=== PATIENT | female | born 1970 ===

== ENCOUNTER 2017-07-06 15:51 | Emergency (ER) | payer BC ==
[2017-07-06 16:07] VITALS: BP 128/97; PULSE 107; RESP 16; TEMP 98.2; O2SAT 100
--- NOTE | 2017-07-06 16:15 | ED PDOC ---
HPI: General Adult Time Seen by Provider: 07/06/17 16:14 Chief Complaint (Nursing): Anxiety Chief Complaint (Provider): SOB, anxiety History Per: Patient Additional Complaint(s): 46-year-old female presents to emergency Department with chest congestion and cough. Patient has history of asthma and states she is currently taking steroids for asthma exacerbation. Patient was at work today when she noticed a clicking sensation and cramping pain in her right thumb that may have been caused by injury to thumb while taking out the garbage earlier this morning. The thumb pain made patient extremely anxious which caused her shortness of breath to worsen. Patient has history of anxiety and she took a Klonopin dose at that time which seemed to help. Upon arrival patient's feels anxious and slightly short of breath but she denies suicidal or homicidal ideation. PMD: Dr. Mcnamara Past Medical History Reviewed: Historical Data, Nursing Documentation, Vital Signs Vital Signs: Last Vital Signs Temp 98.2 F 07/06/17 16:03 Pulse 107 H 07/06/17 16:03 Resp 16 07/06/17 16:03 BP 128/97 H 07/06/17 16:03 Pulse Ox 100 07/06/17 16:15 - Medical History PMH: Anxiety, Asthma - Family History Family History: States: No Known Family Hx - Living Arrangements Living Arrangements: With Family - Social History Current smoker - smoking cessation education provided: No Alcohol: None Drugs: Denies - Allergies Allergies/Adverse Reactions: Allergies Allergy/AdvReac Type Severity Reaction Status Date / Time No Known Allergies Allergy Verified 07/06/17 16:03 Review of Systems ROS Statement: Except As Marked, All Systems Reviewed And Found Negative Constitutional: Negative for: Fever Cardiovascular: Positive for: Chest Pain ("tightness") Respiratory: Positive for: Cough, Shortness of Breath Gastrointestinal: Negative for: Nausea, Vomiting Psych: Positive for: Anxiety. Negative for: Suicidal ideation Physical Exam - Reviewed Nursing Documentation Reviewed: Yes Vital Signs Reviewed: Yes - Physical Exam Appears: Positive for: Well, Non-toxic, No Acute Distress Skin: Negative for: Rash Eye Exam: Positive for: Normal appearance Cardiovascular/Chest: Positive for: Regular Rate, Rhythm Respiratory: Positive for: Decreased Breath Sounds. Negative for: Respiratory Distress Gastrointestinal/Abdominal: Positive for: Soft. 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 Negative for: Motor/Sensory Deficits, Aphasia, Facial Droop - Laboratory Results Result Diagrams: 07/06/17 17:55 07/06/17 17:55 Urine POC: Negative - ECG Interpretation Of ECG: Sinus tach 111, no acute finding, reviewed by PA and ED attending O2 Sat by Pulse Oximetry: 100 Pulse Ox Interpretation: Normal - Other Rad CXR X-Ray: Interpreted by Me, Viewed By Me X-Ray Interpretation: no acute finding Nebulizer Treatments/Peak Flow - Duonebs Number of Bronchodilator Doses given?: 1 (duoneb) - Steroid Treatment Steroid: IV (solmedrol) - Clinical Response Clinical Response: Improved Medical Decision Making Medical Decision Makin-year-old with asthma exacerbation and anxiety. 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 West, patient does not meet criteria for admission and is stable for discharge. Patient feels better after DuoNeb treatment and medications administered. She was advised to continue current prednisone course and follow up tomorrow with primary doctor. Disposition - Clinical Impression Clinical Impression: Anxiety, Asthma Counseled Patient/Family Regarding: Studies Performed, Diagnosis, Need For Followup, Rx Given - Disposition Referrals: [facility] [Outside] Disposition Time: 19:15 Condition: STABLE Additional Instructions: Continue with current medications. Follow up tomorrow with primary doctor. Instructions: Anxiety (ED), Asthma (ED) Forms: [employer] ([place]ian) Results - Lab Results Lab Results: 07/06/17 07/06/17 17:55 17:55 WBC 8.9 RBC 3.72 L Hgb 11.8 L Hct 34.1 MCV 91.5 MCH 31.6 H MCHC 34.5 RDW 14.1 Plt Count 211 MPV 8.6 Neut % (Auto) 86.7 H Lymph % (Auto) 9.2 L [place] % (Auto) 3.9 Eos % (Auto) 0.0 Baso % (Auto) 0.2 Neut # 7.7 H Lymph # 0.8 L [place] # 0.4 Eos # 0.0 Baso # 0.0 Neutrophils % (Manual) Pending Lymphocytes % (Manual) Pending Monocytes % (Manual) Pending Platelet Estimate Pending Sodium 141 Potassium 4.2 Chloride 102 Carbon Dioxide 27 Anion Gap 16 BUN 13 Creatinine 0.7 Est GFR ( Amer) > 60 Est GFR (Non-Af Amer) > 60 Random Glucose 100 Calcium 9.6 Total Bilirubin 0.5 AST 24 ALT 28 Alkaline Phosphatase 50 Troponin I < 0.0120 Total Protein 7.8 Albumin 4.4 Globulin 3.4 Albumin/Globulin Ratio 1.3
[2017-07-06] MEDS ORDERED: Albuterol-Ipratrop 3 mg / 0.5 (3 ml) UD INH STA (17:04)
[2017-07-06] MEDS ORDERED: Albuterol-Ipratrop 3 mg / 0.5 (3 ml) UD ONE (17:28)
[2017-07-06 18:15] LABS: BASO % 0.2 % (0.0-2.0); HEMOGLOBIN 11.8 g/dL (12.0-16.0); LYMPH # 0.8 K/uL (1.0-4.3); LYMPH % 9.2 % (20.0-40.0); MEAN CELL VOLUME 91.5 fl (81.0-99.0); MEAN CORPUSCULAR HEMOGLOBIN 31.6 pg (27.0-31.0); MEAN CORPUSCULAR HGB CONC 34.5 g/dL (33.0-37.0); MEAN PLATELET VOLUME 8.6 fl (7.2-11.7); MONO # 0.4 K/uL (0.0-0.8); MONO % 3.9 % (0.0-10.0); NEUT # 7.7 K/uL (1.8-7.0); NEUT % 86.7 % (50.0-75.0); PLATELET COUNT 211 K/uL (130-400); RBC 3.72 Mil/uL (3.80-5.20); RED CELL DISTRIBUTION WIDTH 14.1 % (11.5-14.5); WHITE BLOOD COUNT 8.9 K/uL (4.8-10.8)
[2017-07-06 18:29] LABS: ALB/GLOB RATIO 1.3 (1.0-2.1); ALBUMIN 4.4 g/dL (3.5-5.0); ALT/SGPT 28 U/L (9-52); AST/SGOT 24 U/L (14-36); BLOOD UREA NITROGEN 13 mg/dl (7-17); CALCIUM 9.6 mg/dL (8.4-10.2); GFR AFRICAN-AMERICAN > 60; GFR NON-AFRICAN AMERICAN > 60
--- NOTE | 2017-07-06 18:43 | RAD ---
HISTORY: Cough. COMPARISON: No prior. TECHNIQUE: Chest PA and lateral FINDINGS: LUNGS: No active pulmonary disease. PLEURA: No significant pleural effusion identified. No pneumothorax apparent. CARDIOVASCULAR: Normal. OSSEOUS STRUCTURES: No significant abnormalities. VISUALIZED UPPER ABDOMEN: Normal. OTHER FINDINGS: None. IMPRESSION: No active disease.
[2017-07-06 19:19] LABS: BASOPHIL 1 % (0-2); LYMPHOCYTE 15 % (20-50); MONOCYTE 2 % (0-10); NEUTROPHIL 82 % (42-75); PLATELET ESTIMATE NORMAL (NORMAL); TOTAL CELLS COUNTED 100
[2017-07-06 19:20] LABS: OVALOCYTES SLIGHT
--- NOTE | 2017-07-08 11:26 | CARD ---
APPROVED REPORT EKG Measurement Heart [id number] <Conclusion> Sinus tachycardia Otherwise normal ECG
== END 2017-07-06 19:40 | disposition home or self-care (01) ==
LOC: H.ER 15:51
DX: J45.901 Unspecified asthma with (acute) exacerbation (principal); F41.9 Anxiety disorder, unspecified
CPT/HCPCS: 71046; 80053; 81025; 84484; 85025; 93005; 94640; 96374; 99283; J2930